=== PATIENT | male | born 1980 | race Caucasian/White ===

== ENCOUNTER 2016-05-25 21:01 | Emergency (ER) | payer OTHER ==
[2016-05-25] MEDS ORDERED: 0.9 % SODIUM CHLORIDE 1,000 ML BAG IV ONE (21:32)
[2016-05-25 21:40] LABS: BASO % 0.5 % (0-6); EOS % 3.1 % (0-6); GRAN % 51.7 % (47-80); HEMATOCRIT 43.2 % (42.0-52.0); HEMOGLOBIN 14.5 gm/dl (14.0-18.0); LYMPH % 35.3 % (16-45); MEAN CORPUSCULAR HEMOGLOBIN 32.2 pg (27-33); MEAN CORPUSCULAR HGB CONC 33.6 g/dl (32-36); MEAN PLATELET VOLUME 10.1 fl (7.4-10.4); MONO % 9.4 % (0-9); PLATELET COUNT 276 K/uL (130-400); RED CELL DISTRIBUTION WIDTH 12.7 % (11.5-14.5); WHITE BLOOD COUNT W/O DIFF 6.2 K/uL (4.2-12.2)
[2016-05-25 21:53] LABS: ALBUMIN 4.6 gm/dL (3.5-5.0); ALKALINE PHOSPHATASE 59 U/L (38-126); ALT/SGPT 31 U/L (21-72); ANION GAP 14.4 (7-16); AST/SGOT 24 U/L (17-59); BLOOD UREA NITROGEN 15 mg/dL (9-20); CARBON DIOXIDE 26.6 mmol/L (22-30); CREATININE 0.9 mg/dL (0.66-1.25); EST GLOMERULAR FILTRATION RATE > 60 ml/min; GLUCOSE,RANDOM 99 mg/dL (70-110); LIPASE 42 U/L (23-300); TOTAL PROTEIN 7.1 gm/dL (6.3-8.2)
--- NOTE | 2016-05-25 22:21 | Emergency Department Record ---
History of Present Illness - General Chief Complaint: Abdominal Pain Stated Complaint: RIGHT SIDE ABD PAIN Time Seen by Provider: 05/25/16 21:24 Source: Patient Mode of Arrival: Ambulatory Limitations: No limitations - History of Present Illness Initial Comments: pt was playing cards when he developed ruq pain. he had had pizza to eat. pain is easing. it started an hour ago. MD Complaint: Abdominal pain Onset/Timin -: Hour(s) Location: RUQ, RLQ Migration to: No migration Severity: Moderate Quality: Dull Consistency: Constant Improves With: Nothing Worsens With: Nothing Associated Symptoms: Denies other symptoms - Related Data Allergies Allergy/AdvReac Type Severity Reaction Status Date / Time No Known Allergies Allergy Unverified 03/31/15 08:38 Travel Screening - Travel/Exposure Within Last 30 Days Have you traveled within the last 30 days?: No Review of Systems Reviewed: No additional complaints except as noted below Constitutional: Reports: As per HPI. Denies: Chills, Fever, Malaise, Night sweats, Weakness, Weight change Eyes: Reports: As per HPI. Denies: Eye discharge, Eye pain, Photophobia, Vision change ENT: Reports: As per HPI. Denies: Congestion, Dental pain, Ear pain, Epistaxis , Hearing loss, Throat pain Respiratory: Reports: As per HPI. Denies: Cough, Dyspnea, Hemoptysis, Stridor, Wheezes Cardiovascular: Reports: As per HPI. Denies: Arrhythmia, Chest pain, Dyspnea on exertion, Edema, Murmurs, Orthopnea, Palpitations, Paroxysmal nocturnal dyspnea, Rheumatic Fever, Syncope Endocrine: Reports: As per HPI. Denies: Fatigue, Heat or cold intolerance, Polydipsia, Polyuria Gastrointestinal: Reports: As per HPI. Denies: Abdominal pain, Constipation, Diarrhea, Hematemesis, Hematochezia, Melena, Nausea, Vomiting Genitourinary: Reports: As per HPI. Denies: Dysuria, Frequency, Hematuria, Incontinence, Retention, Testicular pain, Testicular mass, Urgency Musculoskeletal: Reports: As per HPI. Denies: Arthralgia, Back pain, Gout, Joint swelling, Myalgia, Neck pain Skin: Reports: As per HPI. Denies: Bruising, Change in color, Change in hair/ nails, Lesions, Pruritus, Rash Neurological: Reports: As per HPI. Denies: Abnormal gait, Confusion, Headache, Numbness, Paresthesias, Seizure, Tingling, Tremors, Vertigo, Weakness Psychiatric: Reports: As per HPI. Denies: Anxiety, Auditory hallucinations, Depression, Homicidal thoughts, Suicidal thoughts, Visual hallucinations Hematological/Lymphatic: Reports: As per HPI. Denies: Anemia, Blood Clots, Easy bleeding, Easy bruising, Swollen glands Past Medical History - SOCIAL HISTORY Smoking Status: Current every day smoker - RESPIRATORY Hx Respiratory Disorders: No - CARDIOVASCULAR Hx Cardio Disorders: No - NEURO Hx Neuro Disorders: No - GI Hx GI Disorders: No - Hx Genitourinary Disorders: No - ENDOCRINE Hx Endocrine Disorders: No - MUSCULOSKELETAL Hx Musculoskeletal Disorders: No - PSYCH Hx Psych Problems: No - HEMATOLOGY/ONCOLOGY Hx Hematology/Oncology Disorders: No Family Medical History Any Significant Family History?: Yes Hx Diabetes: Father Physical Exam - General General Appearance: Alert, Oriented x3, Cooperative, Mild distress - Head Head exam: Normal inspection - Eye Eye exam: Normal appearance, PERRL, EOMI Pupils: Normal accommodation - ENT ENT exam: Normal exam, Mucous membranes moist, Normal external ear exam, Normal orophraynx Ear exam: Normal external inspection. negative: External canal tenderness Nasal Exam: Normal inspection. negative: Discharge, Sinus tenderness Mouth exam: Normal external inspection, Tongue normal Teeth exam: Normal inspection. negative: Dental caries Throat exam: Normal inspection. negative: Tonsillar erythema, Tonsillar exudate - Neck Neck exam: Normal inspection, Full ROM. negative: Tenderness - Respiratory Respiratory exam: Normal lung sounds bilaterally. negative: Respiratory distress - Cardiovascular Cardiovascular Exam: Regular rate, Normal rhythm, Normal heart sounds - GI/Abdominal GI/Abdominal exam: Soft, Normal bowel sounds, Tenderness (ruq) - Rectal Rectal exam: Deferred - exam: Deferred - Extremities Extremities exam: Normal inspection, Full ROM, Normal capillary refill. negative: Tenderness - Back Back exam: Reports: Normal inspection, Full ROM. Denies: Muscle spasm, Rash noted, Tenderness - Neurological Neurological exam: Alert, CN II-XII intact, Normal gait, Oriented X3 - Psychiatric Psychiatric exam: Normal affect, Normal mood - Skin Skin exam: Dry, Intact, Normal color, Warm Course Vital Signs 05/25/16 21:10 Temperature 97.9 F Pulse Rate 68 Respiratory 18 Rate Blood Pressure 130/78 Pulse Ox 99 - Reevaluation(s) Reevaluation #1: 05/25/16 23:38 pt continues to feel better Medical Decision Making - Management Options MDM Management: Additional Work-up Planned (e.g. ADM/Transfer/OP Study) - Data Complexity MDM Data: Labs Ordered and/or Reviewed, X-Ray Ordered and/or Reviewed - Lab Data Result diagrams: 05/25/16 21:20 05/25/16 21:20 Lab Results 05/25/16 05/25/16 Range/Units 21:20 21:20 WBC 6.2 (4.2-12.2) K/uL RBC 4.50 (4.40-5.70) M/uL Hgb 14.5 (14.0-18.0) gm/dl Hct 43.2 (42.0-52.0) % MCV 96.0 (81-97) fl MCH 32.2 (27-33) pg MCHC 33.6 (32-36) g/dl RDW 12.7 (11.5-14.5) % Plt Count 276 (130-400) K/uL MPV 10.1 (7.4-10.4) fl Gran % 51.7 (47-80) % Lymphocytes % 35.3 (16-45) % Monocytes % 9.4 H (0-9) % Eosinophils % 3.1 (0-6) % Basophils % 0.5 (0-6) % Sodium 138 (136-145) mmol/L Potassium 4.2 (3.5-5.1) mmol/L Chloride 97 L (98-107) mmol/L Carbon Dioxide 26.6 (22-30) mmol/L Anion Gap 14.4 (7-16) BUN 15 (9-20) mg/dL Creatinine 0.9 (0.66-1.25) mg/dL Estimated GFR > 60 ml/min Random Glucose 99 (70-110) mg/dL Calcium 9.0 (8.5-10.1) mg/dL Total Bilirubin 0.20 (0.2-1.3) mg/dL Direct Bilirubin 0.0 (0-0.3) mg/dL AST 24 (17-59) U/L ALT 31 (21-72) U/L Alkaline Phosphatase 59 (38-126) U/L Total Protein 7.1 (6.3-8.2) gm/dL Albumin 4.6 (3.5-5.0) gm/dL Lipase 42 (23-300) U/L - Radiology Data Radiology results: Report reviewed, Image reviewed Disposition Disposition: Discharge Clinical Impression: Renal lithiasis Disposition: Home, Self-Care Condition: (1) Good Instructions: Kidney Stones (ED), How to Strain Your Urine (ED) Additional Instructions: follow up with family doctor. return sooner if worse. push fluids Forms: Patient Portal Access
[2016-05-25 23:52] LABS: URINE APPEARANCE CLEAR; URINE BILIRUBIN NEGATIVE (NEGATIVE); URINE BLOOD SMALL (NEGATIVE); URINE COLOR YELLOW; URINE GLUCOSE (UA) NEGATIVE (NEGATIVE); URINE KETONE NEGATIVE (NEGATIVE); URINE LEUKOCYTE ESTERASE NEGATIVE (NEGATIVE); URINE NITRITE NEGATIVE (NEGATIVE); URINE PROTEIN NEGATIVE (NEGATIVE); URINE UROBILINOGEN 0.2 E.U./dL (0.20 - 1.00)
[2016-05-26 00:04] LABS: URINE EPITHELIAL CELLS 0 - 2 (FEW); URINE WBC 0 - 2 (0-2/hpf)
--- NOTE | 2016-05-29 14:52 | CT SCAN REPORT ---
EXAM: CT OF THE ABDOMEN AND PELVIS WITH CONTRAST HISTORY: RIGHT SIDED ABDOMINAL PAIN. TECHNIQUE: Routine post contrast CT images were obtained following intravenous administration of 100 ml of Omnipaque 300. Comparison: None. FINDINGS: The lung bases are unremarkable. The liver, gallbladder, pancreas, spleen, and adrenals are unremarkable. The kidneys enhance and excrete contrast normally. Exophytic cyst lower pole left kidney measuring 2.9 cm. There does appear to be mild urothelial enhancement involving the right renal collecting system. Borderline right hydronephrosis. Additionally within the midline posterior bladder is a punctate 1 mm calculus. Constellation of findings suggest recently passed right ureteral calculus. Alternatively infectious process is not excluded and recommend correlation with urinalysis. The bowel is normal in caliber. The appendix is not visualized as a discreet structure although there is no inflammatory change in the region of the appendix. The prostate is borderline prominent measuring 5 x 4 cm. Nonspecific prostate calcifications. No abdominal or pelvic lymphadenopathy. The aorta enhances normally with contrast. The abdominal wall soft tissues are unremarkable. No acute osseous abnormality. IMPRESSION: 1. BORDERLINE/MILD RIGHT HYDRONEPHROSIS AND HYDROURETER. ASYMMETRIC UROTHELIAL ENHANCEMENT ON THE RIGHT. PUNCTATE 1 MM CALCULUS WITHIN THE DEPENDENT MIDLINE BLADDER. CONSTELLATION OF FINDINGS FAVOR RECENTLY PASSED RIGHT URETERAL CALCULUS. INFECTIOUS PROCESSES ARE NOT EXCLUDED IN THE APPROPRIATE CLINICAL SETTING. 2. SIMPLE APPEARING CYST LOWER POLE LEFT KIDNEY. JOB NUMBER: [id number] MTDD
== END 2016-05-25 23:59 | disposition home or self-care (01) ==
LOC: ER 21:01
DX: N20.0 Calculus of kidney (principal)
CPT/HCPCS: 99283; 99284; 83690; 85025; 80076; 80048; 81001; 74177; Q9967